=== PATIENT | male | born 1990 | race Two or more races ===

== ENCOUNTER → 2021-06-25 | Outpatient (CLI) | payer OTHER ==
--- NOTE | 2021-06-25 13:31 | KCIC ---
Three view lumbosacral spine History: Pain AP, coned-down lateral and lateral views of the lumbosacral spine were obtained. The vertebral bodies are aligned. There is no loss of vertebral body stature. Intervertebral disc hei ghts are preserved. Impression: No acute findings. End Impression Electronically signed by: Taiwo Sow III, MD (06/25/2021 1:29 PM) [facility]
== END ==
LOC: KCIC 11:30
PROVIDERS: ATTEND Family Medicine
DX: M54.50 Low back pain, unspecified (principal)
CPT/HCPCS: 72100